=== PATIENT | male | born 1965 | race American Indian/Alaskan Native ===

== ENCOUNTER 2022-03-30 10:48 | Outpatient (CLI) | payer OTHER ==
[2022-04-03 13:57] LABS: CD4/CD8 Ratio 0.56 (0.86-5.00)
== END 2022-03-30 10:49 | disposition home or self-care (01) ==
LOC: LAB 10:48
PROVIDERS: ATTEND Internal Medicine
DX: Z21 Asymptomatic human immunodeficiency virus [HIV] infection status (principal); I10 Essential (primary) hypertension; F31.9 Bipolar disorder, unspecified
CPT/HCPCS: 36415; 82024